=== PATIENT | female | born 1995 | race Hispanic/Latino ===

== ENCOUNTER 2017-07-09 09:09 | Emergency (ER) | payer SELFPAY ==
[2017-07-09 09:36] VITALS: BP 102/66
--- NOTE | 2017-07-09 10:52 | Emergency Department Report ---
ED General Adult HPI - General Chief complaint: Upper Respiratory Infection Stated complaint: CHEST COLD Time Seen by Provider: 07/09/17 10:37 Source: patient Mode of arrival: Ambulatory Limitations: No Limitations - History of Present Illness Initial comments: Healthy 21-year-old female presents with fever, cough, chest pain, runny nose, sore throat. She has been ill for 5 days. She's had chills and night sweats. She says she has central chest pain. Achiness especially with cough. No radiation of chest pain. Denies leg pain. Denies recent travel. Her young daughter has similar symptoms. - Related Data Previous Rx's Medication Instructions Recorded Last Taken Type Ibuprofen [Motrin 800 MG tab] 800 mg PO Q8H PRN #30 tablet 01/20/14 11/30/13 Rx Vit37/Iron/Folic Acid 1 each PO DAILY #60 tab.chew 01/20/14 02/10/14 Rx [Prenata Chewable Tablet] HYDROcodone/APAP 5-325 [Marcus 1 each PO Q6H PRN #30 tablet 02/14/14 Unknown Rx 5-325 mg TAB] Ibuprofen [Motrin 800 MG tab] 800 mg PO Q8H PRN #90 tablet 02/14/14 Unknown Rx predniSONE [Deltasone] 60 mg PO QDAY 5 Days #15 tab 07/09/17 Unknown Rx Allergies Allergy/AdvReac Type Severity Reaction Status Date / Time coconut Allergy Vomiting Uncoded 09/24/14 17:55 ED Review of Systems ROS: Stated complaint: CHEST COLD Other details as noted in HPI Comment: All other systems reviewed and negative Constitutional: fever, malaise Eyes: denies: eye pain ENT: throat pain. denies: ear pain Respiratory: cough, shortness of breath Cardiovascular: chest pain Gastrointestinal: denies: abdominal pain ED Past Medical Hx - Past Medical History Previous Medical History?: No Hx Hypertension: No Hx CVA: No Hx Heart Attack/AMI: No Hx Congestive Heart Failure: No Hx Diabetes: No Hx Deep Vein Thrombosis: No Hx Pulmonary Embolism: No Hx GERD: No Hx Liver Disease: No Hx Renal Disease: No Hx Sickle Cell Disease: No Hx Arthritis: No Hx Headaches / Migraines: No Hx Seizures: No Hx Kidney Stones: No Hx Psychiatric Treatment: No Hx Asthma: No Hx COPD: No Hx Tuberculosis: No Hx Dementia: No Hx HIV: No - Surgical History Past Surgical History?: No Hx Coronary Stent: No Hx Open Heart Surgery: No Hx Pacemaker: No Hx Internal Defibrillator: No Hx Cholecystectomy: No Hx Appendectomy: No Hx Breast Surgery: No - Social History Smoking Status: Never Smoker Substance Use Type: None - Medications Home Medications: Home Medications Medication Instructions Recorded Confirmed Last Taken Type Ibuprofen [Motrin 800 MG tab] 800 mg PO Q8H PRN #30 tablet 01/20/14 02/26/1506/15 Rx Vit37/Iron/Folic Acid 1 each PO DAILY #60 tab.chew 01/20/14 02/26/15 Rx [Prenata Chewable Tablet] HYDROcodone/APAP 5-325 [Marcus 1 each PO Q6H PRN #30 tablet 02/14/14 02/26/15 Unknown Rx 5-325 mg TAB] Ibuprofen [Motrin 800 MG tab] 800 mg PO Q8H PRN #90 tablet 02/14/14 02/26/15 Unknown Rx predniSONE [Deltasone] 60 mg PO QDAY 5 Days #15 tab 07/09/17 Unknown Rx ED Physical Exam - General Limitations: No Limitations General appearance: alert, in no apparent distress - Head Head exam: Present: atraumatic, normocephalic - Eye Eye exam: Present: normal appearance Pupils: Present: normal accommodation - ENT ENT exam: Present: normal exam, normal orophraynx, mucous membranes moist - Neck Neck exam: Present: normal inspection. Absent: tenderness, meningismus - Respiratory Respiratory exam: Present: normal lung sounds bilaterally. Absent: respiratory distress, wheezes, rales, rhonchi, stridor - Cardiovascular Cardiovascular Exam: Present: regular rate, normal rhythm, normal heart sounds. Absent: systolic murmur, diastolic murmur, rubs, gallop - GI/Abdominal GI/Abdominal exam: Present: soft, normal bowel sounds. Absent: distended, tenderness, guarding, rebound - Extremities Exam Extremities exam: Present: normal inspection, full ROM - Back Exam Back exam: Present: normal inspection - Neurological Exam Neurological exam: Present: alert, oriented X3 - Psychiatric Psychiatric exam: Present: normal affect, normal mood - Skin Skin exam: Present: warm, dry, intact, normal color. Absent: rash ED Course Vital Signs 07/09/17 09:33 Temperature 97.9 F Pulse Rate 110 H Respiratory 18 Rate Blood Pressure 102/66 O2 Sat by Pulse 96 Oximetry ED Medical Decision Making - Medical Decision Making Cristela has evidence of acute bronchitis with fever, cough and chest pain. She has bloody mucus per her report. Normal lung exam. rx: prednisone Critical care attestation.: If time is entered above; I have spent that time in minutes in the direct care of this critically ill patient, excluding procedure time. ED Disposition Clinical Impression: Acute bronchitis Disposition: DC- TO HOME OR SELFCARE Is pt being admited?: No Does the pt Need Aspirin: No Condition: Good Instructions: Acute Bronchitis (ED) Prescriptions: predniSONE [Deltasone] 60 mg PO QDAY 5 Days #15 tab Referrals: PRIMARY CARE, [Primary Care Provider] - 3-5 Days Time of Disposition: 10:52
== END 2017-07-09 11:14 | disposition home or self-care (01) ==
LOC: ED 09:09
DX: J20.9 Acute bronchitis, unspecified (principal); Z91.018 Allergy to other foods
CPT/HCPCS: 99282